=== PATIENT | male | born 1965 | race Caucasian/White ===

== ENCOUNTER 2020-06-09 14:17 | Emergency (ER) | payer OTHER ==
[2020-06-09 14:30] VITALS: BP 126/81; PULSE 81; TEMP 98.2; BMI 37.0
[2020-06-09] MEDS ORDERED: ACETAMINOPHEN 325 MG TABLET (FP) PO ONE ×2 (14:42→15:54)
[2020-06-09] MEDS ORDERED: ACETAMINOPHEN 325 MG TABLET (FP) ONE (14:55)
[2020-06-09 15:09] LABS: BASO % 0.8 % (0-2.0); EOS % 2.2 % (0-4.5); HEMATOCRIT 42.9 % (35.4-49); HEMOGLOBIN 14.7 GM/dl (11.7-16.9); LYMPH % 22.8 % (8-40); MCH 30.3 pg (25.7-33.7); MCHC 34.2 g/dl (32.0-35.9); MEAN CELL VOLUME 88.6 fl (80-96); MEAN PLT VOLUME 7.7 fl (7.5-11.1); MONO % 7.2 % (3.8-10.2); PLATELET COUNT 235 K/MM3 (134-434); RBC 4.84 M/mm3 (4.00-5.60); RDW 12.3 % (11.9-15.9); WHITE BLOOD COUNT 8.2 K/mm3 (4.0-10.8)
[2020-06-09 15:31] LABS: BILIRUBIN,TOTAL 0.5 mg/dl (0.2-1); CALCIUM 8.5 mg/dl (8.5-10); TOT PROT 6.9 g/dl (6.4-8.2)
[2020-06-09] MEDS ORDERED: POTASSIUM CHLORIDE TABS 10 MEQ TABLET.ER (FP) PO ONE ×2 (16:13)
== END 2020-06-09 17:54 | disposition home or self-care (01) ==
LOC: FER 14:17
DX: M54.5 Low back pain (principal); R63.4 Abnormal weight loss; E87.6 Hypokalemia
CPT/HCPCS: 36415; 71046-TC-FY; 71101-TC-RT-FY; 80053; 81003; 85025; 93005; 99285-25

== ENCOUNTER 2021-10-03 09:28 | Emergency (ER) | payer BC ==
[2021-10-03 09:54] VITALS: BP 155/107; PULSE 90; RESP 18; TEMP 98.6; BMI 34.8
[2021-10-03] MEDS ORDERED: CYCLOBENZAPRINE HCL 5 MG TABLET PO ONE (09:55)
[2021-10-03] MEDS ORDERED: CYCLOBENZAPRINE HCL 5 MG TABLET ONE (10:02)
[2021-10-03] MEDS ORDERED: DEXAMETHASONE SOD PHOSPHATE 10 MG/1 ML VIAL IM ONE (10:37)
[2021-10-03] MEDS ORDERED: DEXAMETHASONE SOD PHOSPHATE 10 MG/1 ML VIAL ONE (11:04)
== END 2021-10-03 12:05 | disposition home or self-care (01) ==
LOC: FER 09:28
PROC: 3E0233Z Introduction of Anti-inflammatory into Muscle, Percutaneous Approach (ICD-10-PCS; principal; 2021-10-03)
DX: M54.31 Sciatica, right side (principal)
CPT/HCPCS: 81003; 82962; 87086; 99284-25; J1100

== ENCOUNTER 2022-01-26 17:45 | Emergency (ER) | payer BC ==
[2022-01-26 18:08] VITALS: BP 134/99; PULSE 97; RESP 18; TEMP 98.9; BMI 37.6
[2022-01-26 18:56] LABS: INR 1.2 (0.83-1.09); PROTHROMBIN TIME (PATIENT) 13.8 SEC (9.7-13.0)
[2022-01-26 19:03] LABS: HEMATOCRIT 41.4 % (35.4-49); MCH 29.6 pg (25.7-33.7); MCHC 33.8 g/dl (32.0-35.9); MEAN CELL VOLUME 87.3 fl (80-96); MEAN PLT VOLUME 7.3 fl (7.5-11.1); PLATELET COUNT 237.5 10^3/uL (134-434); RBC 4.74 10^6/uL (4.00-5.60); RDW 13.9 % (11.9-15.9); WHITE BLOOD COUNT 10.1 10^3/uL (4.0-10.8)
[2022-01-26 19:16] LABS: BILIRUBIN,TOTAL 0.6 mg/dl (0.2-1); CALCIUM 8.6 mg/dl (8.5-10); CREATININE 1.1 mg/dl (0.55-1.3); TOT PROT 6.8 g/dl (6.4-8.2)
[2022-01-26] MEDS ORDERED: morphine CARPU-JECT 4 MG/1 ML DISP.SYRIN IVPUSH ONE (19:16)
[2022-01-26 19:22] LABS: PLATELET ESTIMATE ADEQUATE
[2022-01-26] MEDS ORDERED: morphine SULFATE 4 MG/ML VIAL ONE (19:26)
[2022-01-26] MEDS ORDERED: POTASSIUM CHLORIDE TABS 20 MEQ TABLET.ER (FP) PO ONE ×2 (22:03→22:13)
== END 2022-01-26 22:24 | disposition home or self-care (01) ==
LOC: FER 17:45
DX: M54.6 Pain in thoracic spine (principal)
CPT/HCPCS: 0241U-QW; 36415; 71045-TC-FY; 74177-TC; 80053; 81003; 83690; 85027; 85610; 99285-25; Q9967